=== PATIENT | female | born 1970 | race Caucasian/White ===

== ENCOUNTER → 2022-04-18 14:26 | Outpatient (CLI) | payer OTHER, SELFPAY ==
--- NOTE | 2022-04-18 14:29 | DI.US.S_ITS ---
PROCEDURE: US PERIPH VENOUS LOW EXTREM LT INDICATIONS: EDEMA 8 DAYS POST TRAUMA TECHNIQUE: Real-time imaging, as well as color and pulse Doppler interrogation, were performed of the lower extremity deep veins from the inguinal ligament to the popliteal fossa. COMPARISON: None. FINDINGS: The common femoral, femoral and popliteal veins are normally compressible, and free of intraluminal thrombus. Color and pulse Doppler demonstrate normal phasic intraluminal flow. There is normal augmentation response to distal compression maneuver. At the area of clinical concern involving the superior medial curran, there is a nonvascular heterogeneous fluid collection that measures 5.9 x 2.1 x 2.9 cm. IMPRESSION: Negative for deep venous thrombosis. Apparent soft tissue hematoma seen involving the curran. Dictated by: Morris Damon M.D. on 04/18/2022 at 15:29 Approved by: Morris Damon M.D. on 04/18/2022 at 15:30
--- NOTE | 2022-04-18 14:29 | DI.RAD.S_ITS ---
PROCEDURE: XR TIBIA FIBULA LT 2V INDICATIONS: Leg swelling TECHNIQUE: 2 views of the tibia and fibula were acquired. COMPARISON: None. FINDINGS: Bones: No fractures or dislocations. No suspicious bony lesions. Soft tissues: No suspicious soft tissue calcifications or masses. IMPRESSION: No acute osseous abnormality. Dictated by: Charli March M.D. on 04/18/2022 at 17:24 Approved by: Charli March M.D. on 04/18/2022 at 17:25
== END ==
PROVIDERS: Referring Provider Nurse Practitioner Family; Visit Provider Nurse Practitioner Family
DX: M79.89 Other specified soft tissue disorders (principal)
CPT/HCPCS: 73590; 93971